=== PATIENT | female | born 1980 | race Caucasian/White ===

== ENCOUNTER 2020-04-18 11:57 | Emergency (ER) | payer MEDICAID ==
[~2020-04-18] VITALS: Ht 162.6 cm; Wt 55.0 kg
[2020-04-18 14:15] VITALS: BP 121/83
== END 2020-04-18 14:05 | disposition home or self-care (01) ==
LOC: ER 12:00
DX: S60.458A Superficial foreign body of other finger, initial encounter (principal); S00.85XA Superficial foreign body of other part of head, initial encounter; F41.9 Anxiety disorder, unspecified; F12.90 Cannabis use, unspecified, uncomplicated; F15.90 Other stimulant use, unspecified, uncomplicated; Z72.89 Other problems related to lifestyle; X58.XXXA Exposure to other specified factors, initial encounter; Y93.89 Activity, other specified; Y92.89 Other specified places as the place of occurrence of the external cause; Y99.8 Other external cause status
CPT/HCPCS: 99284

== ENCOUNTER 2022-07-06 10:13 | Emergency (ER) | payer MEDICAID ==
[~2022-07-06] VITALS: Ht 162.6 cm; Wt 59.1 kg
[2022-07-06 10:21] VITALS: BP 112/50
== END 2022-07-06 11:18 | disposition left against medical advice (07) ==
LOC: ER 10:13
DX: R06.02 Shortness of breath (principal); Z53.21 Procedure and treatment not carried out due to patient leaving prior to being seen by health care provider
CPT/HCPCS: 93005

== ENCOUNTER 2023-04-03 15:39 | Emergency (ER) | payer MEDICAID ==
[~2023-04-03] VITALS: Ht 160 cm; Wt 63.0 kg
[2023-04-03 16:05] VITALS: BP 96/63; TEMP 98.3
--- NOTE | 2023-04-03 16:23 | NUR ---
RT PAGED BY EMT COMMUNICATION AND OUTREACH MANAGER.
[2023-04-03] MEDS ORDERED: predniSONE 20 mg tablet PO ONE (16:40)
[2023-04-03] MEDS ORDERED: albuterol 2.5 MG/3 ML nebule CONTNEB PRN (16:40)
[2023-04-03 16:47] VITALS: PULSE 101; RESP 19; O2SAT 95
[2023-04-03 18:00] VITALS: PULSE 120; RESP 21; O2SAT 97
--- NOTE | 2023-04-03 18:08 | NUR ---
MSE COMPLETED BY KARRIE BENSON.
[2023-04-03] MEDS ORDERED: PRED20TA PO (18:09)
[2023-04-03] MEDS ORDERED: ALBU8HFA PO (18:09)
== END 2023-04-03 19:17 | disposition home or self-care (01) ==
LOC: ER 15:40
DX: J45.909 Unspecified asthma, uncomplicated (principal); F12.10 Cannabis abuse, uncomplicated; F15.10 Other stimulant abuse, uncomplicated; F41.9 Anxiety disorder, unspecified; Z79.899 Other long term (current) drug therapy
CPT/HCPCS: 71045; 94640; 94644; 94760; 99285

== ENCOUNTER 2023-06-05 08:47 | Outpatient (CLI) | payer MEDICAID ==
[~2023-06-05] VITALS: Ht 162.6 cm; Wt 65.8 kg
[2023-06-05] MEDS ORDERED: albuterol 2.5 MG/3 ML nebule NEB ONE (09:10)
[2023-06-05 09:20] VITALS: PULSE 69; RESP 16; O2SAT 98
== END 2023-06-05 23:59 | disposition home or self-care (01) ==
LOC: RT 08:47
PROVIDERS: ATTEND Registered Nurse
DX: R94.2 Abnormal results of pulmonary function studies (principal); J45.909 Unspecified asthma, uncomplicated
CPT/HCPCS: 94060; 94760